=== PATIENT | female | born 1995 | race Caucasian/White ===

== ENCOUNTER 2018-10-28 06:08 | Emergency (ER) | payer OTHER ==
[2018-10-28] MEDS ORDERED: AMOXICILLIN TR/POT CLAVULANATE 500-125 MG TAB PO ONE (08:19)
[2018-10-28] MEDS ORDERED: AMOXICILLIN TRIHYDRATE 500 MG CAPSULE PO ONE (08:19)
[2018-10-28] MEDS ORDERED: LIDOCAINE 1% INJ-PF (10 MG/ML) 30 ML SDV INJ ONE (08:39)
--- NOTE | 2018-10-28 10:33 | ER Document Report ---
Entered by JUSTIN MONCADA SCRIBE 10/28/18 0811 Acting as scribe for:ROBBI CASTAÑEDA MD ED Animal Bite - General Chief Complaint: Dog Bite Stated Complaint: DOG BITE Time Seen by Provider: 10/28/18 08:09 Primary Care Provider: [facility] [Provider Group] - Follow up in 3-5 days (Call Tuesday running to schedule an appointment for Tuesday or Tuesday.) RISA PINEDA MD [Primary Care Provider] - Follow up as needed Information source: Patient Notes: 23-year-old female who presents to the emergency department today with complaints of a dog bite to her left lower extremity which occurred this morning at around 0530. 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 Patient mentions that this is the second attack by this dog. The first attack was to her right lower extremity. Patient has crush wounds with associated lacerations to the left lower leg. Patient states that her left foot feels "numb" but she is able to move her ankle, foot, and all toes without difficulty. TRAVEL OUTSIDE OF THE [place] IN LAST 30 DAYS: No - Related Data Allergies/Adverse Reactions: No Known Allergies Allergy (Verified 10/28/18 10:26) Past Medical History - General Information source: Patient - Social History Smoking Status: Current Every Day Smoker Cigarette use (# per day): Yes - 3 or 4 a day Frequency of alcohol use: Social Drug Abuse: None Occupation: [employer] Lives with: Spouse/Significant other Family History: Reviewed & Not Pertinent Traumatic Medical History: Reports: Other - Dog bite right leg Past Surgical History: Reports: Hx Tonsillectomy Review of Systems - Review of Systems Constitutional: No symptoms reported EENT: No symptoms reported Cardiovascular: No symptoms reported Respiratory: No symptoms reported Gastrointestinal: No symptoms reported Genitourinary: No symptoms reported Female Genitourinary: No symptoms reported Musculoskeletal: No symptoms reported Skin: See HPI, Other - dog bite to left leg/ankle Hematologic/Lymphatic: No symptoms reported Neurological/Psychological: No symptoms reported -: Yes All other systems reviewed and negative Physical Exam - Vital signs Vitals: Temp Pulse Resp BP Pulse Ox 97.3 F 87 16 109/71 96 10/28/18 06:14 10/28/18 06:14 10/28/18 06:14 10/28/18 06:14 10/28/18 06:14 - Notes Notes: Physical Exam: General: Alert, appears well. HEENT: Normocephalic. Atraumatic. PERRLA. Extraocular movements intact. Oropharynx clear. Neck: Supple. Respiratory: No respiratory distress. Abdominal: Normal Inspection. No distension. Extremities: Moves all four extremities. The right lower leg has multiple dog bites. The anterior lateral lower leg has 2 lacerations approximately 1.5 cm each with subcutaneous fat bulging. The posterior leg has 4 lacerations ranging from 1/3 to 1 cm each. These also have subcutaneous fat bulging. The medial distal leg has 1 larger 4 cm transverse laceration with a 1 cm V- shaped flap of skin extending from the posterior aspect of the wound. This flap does appear to be viable. The wound goes down to include the muscle fascia which is shredded somewhat, but no significant muscle injury is found. There is tender swelling distal to this wound. Distal sensation and motor function is intact with Neurological: Normal cognition. AAOx4. Normal speech. Psychological: Normal affect. Normal Mood. Skin: Normal exam other than the wounds mentioned above. Course - Re-evaluation Re-evalutation: 10/28/18 12:10 PROCEDURE: There are 7 separate wounds that were treated. There are approximately 10 cm of wounds in entirety. None of the wounds were sutured closed. The skin was prepped with Shur-Clens. The wounds were anesthetized with 1% lidocaine local using a total of 20 mL's of lidocaine. The wounds were debrided of all nonviable fat that could be identified. The wounds were each copiously irrigated with normal saline via a 14-gauge syringe. A total of 350 mL's of normal saline was used. Each of the wounds was packed with half inch iodoform gauze. The wounds were dressed with sterile gauze, ABD pads, then wrapped with Coban. - Vital Signs Vital signs: Temp Pulse Resp BP Pulse Ox 97.3 F 87 16 109/71 96 10/28/18 06:14 10/28/18 06:14 10/28/18 06:14 10/28/18 06:14 10/28/18 06:14 Discharge - Discharge Clinical Impression: Dog bite of multiple sites of right lower extremity Condition: Stable Disposition: HOME, SELF-CARE Additional Instructions: Animal Bites Animal bites are often heavily contaminated with bacteria. In spite of thorough cleansing and proper treatment, these wounds frequently become infected. Bite wounds of the hands are especially prone to complications. Bites are dressed, if possible. Large wounds may require suturing after internal cleansing. Because of infection risk, some large wounds must remain unstitched. Your doctor is trained to advise you on the best treatment for your bite. Call the doctor at once if the wound becomes red, swollen, warm, increasingly painful, or if it begins to drain. Danger signs also include red streaks up the involved extremity, swollen glands in the groin or under the arm, or fever and chills. The risk of rabies from domestic animals is very low. Bats, sick animals, and wild animals may expose you to rabies. The physician, or the health department, will inform you if you will need to receive the rabies vaccine. Elevate your leg all the time. Take medications as prescribed. Take ibuprofen 800 mg every 8 hours, or 2 Aleve tablets every 12 hours for the next few days. Change the dressings tomorrow. Use the crutches to limit any weightbearing on the right lower extremity. Follow-up with [facility] Tuesday or Tuesday for recheck of your w ounds. RETURN TO THE EMERGENCY ROOM IF ANY NEW OR WORSENING SYMPTOMS. Prescriptions: Amox Tr/Potassium Clavulanate [Augmentin 875-125 mg Tablet] 1 tab PO BID #14 tablet Oxycodone HCl/Acetaminophen [Percocet 5-325 mg Tablet] 1 tab PO ASDIR PRN #12 tablet PRN Reason: Forms: Return to Work Referrals: RISA PINEDA MD [Primary Care Provider] - Follow up as needed [facility] [Provider Group] - Follow up in 3-5 days (Call Tuesday running to schedule an appointment for Tuesday or Tuesday.) Scribe Attestation: 10/28/18 10:37 I personally performed the services described in the documentation, reviewed and edited the documentation which was dictated to the scribe in my presence, and it accurately records my words and actions. I personally performed the services described in the documentation, reviewed and edited the documentation which was dictated to the scribe in my presence, and it accurately records my words and actions.
[2018-10-28 10:58] VITALS: BP 97/66
--- NOTE | 2018-10-28 15:15 | PDOC CONSULTATION ---
Consultation Consult Date: 10/28/18 Attending physician:: TIMOTEO CASTAÑEDA Provider Consulted: MAGNO CÁRDENAS Consult reason:: Dog bite to the left leg History of Present Illness Admission Date/PCP: RISA PINEDA MD Patient complains of: Dog bites to left leg History of Present Illness: DURAN MKCINLEY is a 23 year old female Who presents the emergency department via ground rescue after having been bitten by her dog in the left leg multiple times. This is a second episode of dog bite sustained by this patient from the same dog previous incident occurred over a year ago. The injury occurred around 530 this morning. Patient was seen in the emergency department by Dr. Timoteo Jenkins, who consulted surgery for evaluation of the leg wound. Past Medical History Medical History: None Traumatic Medical History: Reports: Other - Dog bite right leg Past Surgical History Past Surgical History: Tonsillectomy, repair of right lower extremity bite wounds Past Surgical History: Reports: Tonsillectomy Social History Information Source: Patient Lives with: Spouse/Significant other Smoking Status: Current Every Day Smoker Frequency of Alcohol Use: None Hx Recreational Drug Use: No Hx Prescription Drug Abuse: No Family History Family History: None, Reviewed & Not Pertinent Parental Family History Reviewed: No Children Family History Reviewed: No Sibling(s) Family History Reviewed.: No Medication/Allergy Home Medications: Amox Tr/Potassium Clavulanate [Augmentin 875-125 mg Tablet] 1 tab PO BID #14 tablet 10/28/18 Oxycodone HCl/Acetaminophen [Percocet 5-325 mg Tablet] 1 tab PO ASDIR PRN #12 tablet 10/28/18 Allergies/Adverse Reactions: No Known Allergies Allergy (Verified 10/28/18 10:26) Review of Systems All systems: reviewed and no additional remarkable complaints except as stated - HPI Physical Exam Vital Signs: Temp Pulse Resp BP Pulse Ox 97.3 F 87 16 109/71 96 10/28/18 06:14 10/28/18 06:14 10/28/18 06:14 10/28/18 06:14 10/28/18 06:14 Intake & Output 10/27/18 10/28/18 10/29/18 06:59 06:59 06:59 Weight 68.1 kg General appearance: PRESENT: mild distress Head exam: PRESENT: normocephalic Mouth exam: PRESENT: dry mucosa Cardiovascular exam: PRESENT: RRR Rectal exam: PRESENT: deferred Musculoskeletal exam: PRESENT: other - Left lower extremity examined. Multiple small and medium sized lacerations to the lower leg, medial posterior aspect, with associated bruising; most lacerations approximately 1 cm in length. Medial calf with 2 and half centimeter laceration. Range of motion preserved. Assessment & Plan - Diagnosis (1) Dog bite of calf Qualifiers: Encounter type: initial encounter Plan: Impression: Acute dog bite injuries to the left calf, hemodynamically stable, no gross neurovascular injury. With history of multiple lacerations to the right Recommendations: 1. I recommended to Dr. Castañeda, in the emergency department physician, as well as the patient that should be washed down, and left open to close by secondary intention. Because of the some of injury, risk of contamination, potential for devitalized fat etc., have suggested that these wounds be left open wound closed primarily. 2. Also recommend p.o. antibiotics, tetanus, and leg elevation. 3. Patient follow-up in the emergency department per instructions according to Dr. Castañeda.
== END 2018-10-28 10:56 | disposition home or self-care (01) ==
LOC: ER 06:08
DX: S81.851A Open bite, right lower leg, initial encounter (principal); W54.0XXA Bitten by dog, initial encounter; F17.210 Nicotine dependence, cigarettes, uncomplicated; Z23 Encounter for immunization
CPT/HCPCS: 99283; 96374; J3490